=== PATIENT | female | born 1995 | race Two or more races ===

== ENCOUNTER 2020-10-05 00:15 | Inpatient (IN) | payer OTHER ==
[~2020-10-05] VITALS: Ht 167.6 cm; Wt 65.8 kg
[2020-10-11] MEDS ORDERED: BACTRIM DS TAB1 EACH PO (09:08)
== END 2020-10-11 20:02 | disposition home or self-care (01) | DRG 603 ==
LOC: ER 00:15 → MEDI 11:11 → SEC-K 11:11 → MEDI 11:40
PROVIDERS: ADMIT Internal Medicine; ATTEND Internal Medicine
PROC: BN251ZZ Computerized Tomography (CT Scan) of Facial Bones using Low Osmolar Contrast (ICD-10-PCS; principal; 2020-10-05)
DX: L03.211 Cellulitis of face (principal); Z20.822 Contact with and (suspected) exposure to COVID-19

== ENCOUNTER 2022-09-05 04:51 | Emergency (ER) | payer OTHER ==
[~2022-09-05] VITALS: Ht 167.6 cm; Wt 62.1 kg
[~2022-09-05 04:51] MED LIST: BACTRIM DS TAB1 EACH PO
[2022-09-05] MEDS ORDERED: NAPR500T14 PO (04:58)
[2022-09-05] MEDS ORDERED: DOLOGESIC-DF 51 EACH PO (07:49)
[2022-09-05] MEDS ORDERED: OSEL75CA PO (07:49)
[2022-09-05] MEDS ORDERED: ZYNCOF 20-400120 ML PO (07:50)
[2022-09-05] MEDS ORDERED: PHENAGIL TABLE1 EACH PO (07:50)
== END 2022-09-05 07:58 ==
LOC: ER 04:51
DX: J10.1 Influenza due to other identified influenza virus with other respiratory manifestations (principal); Z20.822 Contact with and (suspected) exposure to COVID-19

== ENCOUNTER 2024-01-06 07:18 | Emergency (ER) | payer OTHER ==
[~2024-01-06] VITALS: Ht 167.6 cm; Wt 68.0 kg
[~2024-01-06 07:18] MED LIST changes: +DOLOGESIC-DF 51 EACH PO; +NAPR500T14 PO; +OSEL75CA PO; +PHENAGIL TABLE1 EACH PO; +ZYNCOF 20-400120 ML PO
[2024-01-06 07:45] VITALS: BP 116/80; O2SAT 100
[2024-01-06] MEDS ORDERED: LIDOCAINE HCL 1% 10ML VIAL PERCUT STA (08:20)
== END 2024-01-06 09:04 | disposition home or self-care (01) ==
LOC: ER 07:20
DX: S01.81XA Laceration without foreign body of other part of head, initial encounter (principal); S80.02XA Contusion of left knee, initial encounter; W18.39XA Other fall on same level, initial encounter; Y93.E8 Activity, other personal hygiene; Y92.012 Bathroom of single-family (private) house as the place of occurrence of the external cause; Y99.9 Unspecified external cause status

== ENCOUNTER 2024-01-16 20:06 | Emergency (ER) | payer OTHER ==
[~2024-01-16] VITALS: Ht 165.1 cm; Wt 63.5 kg
== END 2024-01-16 22:41 | disposition home or self-care (01) ==
LOC: ER 20:08
DX: Z48.02 Encounter for removal of sutures (principal)

== ENCOUNTER 2024-03-08 14:48 | Emergency (ER) | payer OTHER ==
[~2024-03-08] VITALS: Ht 167.6 cm; Wt 63.5 kg
[2024-03-08] MEDS ORDERED: 0.9 % SODIUM CHLORIDE 500 ML IV STA (16:25)
[2024-03-08] MEDS ORDERED: FAMOTIDINE/PF 20 MG/2 ML VIAL ONE (16:56)
[2024-03-08] MEDS ORDERED: DICYCLOMINE HCL 10 MG CAPSULE PO ONE (16:56)
[2024-03-08] MEDS ORDERED: FAMOTIDINE/PF 20 MG/2 ML VIAL IV ONE (17:00)
[2024-03-08] MEDS ORDERED: DICYCLOMINE HCL 20 MG TABLET PO ONE (17:00)
[2024-03-08 17:24] LABS: HEMATOCRIT 38.8 % (36.0-45.00); HEMOGLOBIN 13.1 g/dL (12.0-15.00); MEAN CELL VOLUME 90.6 fL (80.00-100.00); MEAN CORPUSCULAR HEMOGLOBIN 30.7 pg (27.00-32.0); MEAN CORPUSCULAR HGB CONC 33.8 g/dl (32.0-36.0); PLATELET COUNT 305 K/uL (150-450); RED BLOOD COUNT 4.29 M/uL (4.00-6.00); RED CELL DISTRIBUTION WIDTH 12.8 % (11.5-14.5)
[2024-03-08 19:11] LABS: BILIRUBIN TOTAL 0.44 mg/dL (0.3-1.2); CALCIUM 9.2 mg/dL (8.5-10.1); CREATININE SERUM 0.57 mg/dL (0.55-1.02); GFR 126.3; GLOBULINA 2.9 G/DL (2.4-3.5); POTASSIUM 3.48 mEq/L (3.5-5.1); TOTAL PROTEIN 6.9 gm/dL (6.4-8.2)
== END 2024-03-08 20:47 | disposition home or self-care (01) ==
LOC: ER 14:51
PROVIDERS: Emergency Medicine
DX: K29.70 Gastritis, unspecified, without bleeding (principal); R19.7 Diarrhea, unspecified; Z20.822 Contact with and (suspected) exposure to COVID-19